=== PATIENT | male | born 1960 | race Caucasian/White ===

== ENCOUNTER 2022-11-26 08:46 | Outpatient (REF) | payer OTHER, SELFPAY ==
--- NOTE | ~2022-11-26 | XR_ITS ---
EXAMINATION: XR MANDIBLE CLINICAL INFORMATION: Arthralgia of right temporomandibular joint COMPARISON: Radiograph TMJ bilateral from 10/09/2009 TECHNIQUE: 4 views of the mandible were obtained. FINDINGS: No acute visible fracture or dislocation. Mild degenerative changes of the visualized cervical spine. Joint spaces and alignment are maintained. Dental hardware noted. Visualized sinuses are relatively patent. Soft tissues are unremarkable. XR/XR mandible <4V IMPRESSION: 1. No acute visible fracture or dislocation. 2. Mild degenerative changes of the visualized cervical spine.
== END 2022-11-26 08:47 | disposition home or self-care (01) ==
LOC: HO.HMGCX 08:46
PROVIDERS: PCP Internal Medicine; Visit Provider Internal Medicine
DX: M26.621 Arthralgia of right temporomandibular joint (principal)
CPT/HCPCS: 70100

== ENCOUNTER 2023-09-07 10:06 | Outpatient (AMB) | payer OTHER, SELFPAY ==
--- NOTE | 2023-09-07 10:07 | MHC.PC.OV ---
Vital Signs 09/07/23 10:08 09/07/23 10:52 Height 6 ft Weight 204 lb 0.8 oz BMI 27.7 BP 90/60 108/70 Blood Pressure Location Lt brachial Lt brachial Position Sitting Sitting Pulse 92 Pulse Source Pulse Oximeter Pulse Oximetry (%) 100 Oxygen Delivery Method Room Air Intake Visit Reasons: New patient-requesting physical Tack Welder Required: No Allergies No Known Allergies [No Known Allergies*] Allergy (Verified 09/07/23 10:15) Medication List - Last Reconciled 09/07/23 by Mary Prieto MD fluoxetine 20 mg PO DAILY gabapentin 100 mg PO BEDTIME [[facility] 2 gummies PO .QD] Tobacco use date assessed: 09/07/23 Dental Screening Dental Screen Date: 09/07/23 Did you have a dental visit in the last 12 months?: Yes Did you have a dental problem in the last 6 months where you did not have access to dental care?: No Was dental information given to patient?: Patient has dentist HPI New patient-requesting physical HPI Details 62-year-old Overweight male with generalized anxiety disorder coming in for the 1st time to have physical exam. Review of the notes had an x-ray done of the TMJ bilateral showing no visible fracture mild degenerative changes on the cervical spine. decline vaccination PFSH Family History (Updated 09/07/23 @ 10:59 by Mary Prieto MD) Sister Breast cancer Brother Skin cancer Social History (Updated 09/07/23 @ 11:00 by Mary Prieto MD) Housing: Apartment Alcohol intake: current Comment: beer once Q 6 months Patient Tobacco Use Status: Never used Tobacco service: No Current occupational status: employed Cognitive needs: No Hearing needs: No Vision needs: No Questionnaire PHQ-9 Over the last 2 weeks, how often have you been bothered by any of the following problems? 1. Little interest or pleasure in doing things: not at all 2. Feeling down, depressed, or hopeless: several days 3. Trouble falling or staying asleep, or sleeping too much: not at all 4. Feeling tired or having little energy: not at all 5. Poor appetite or overeating: not at all 6. Feeling bad about yourself - or that you are a failure or have let yourself or your family down: not at all 7. Trouble concentrating on things, such as reading the newspaper or watching television: not at all 8. Moving or speaking so slowly that other people could have noticed. Or the opposite - being so fidgety or restless that you have been moving around a lot more than usual: not at all 9. Thoughts that you would be better off or of hurting yourself in some way: not at all Total score: 1 Depression Screening Interpretation: Positive Depression Screening Follow-up: Existing condition and In treatment Depression Screening Done: Yes Source: Developed by Drs. Dk Rivas, Shasta Charlton, Nixon Sultana and colleagues, with an educational faviola from [employer]. Thrive Questionnaire Date Thrive assessed: 09/07/23 I am a: Patient What is your living situation today?: I have a steady place to live Within the past 12 months, did the food you bought not last and you didn't have the money to get more?: Never true Within the past 12 months, did you worry whether your food would run out before you got money to buy more?: Never true Do you have trouble paying for medicines?: No Do you have trouble getting transportation to medical appointments?: No Do you have trouble paying your heating and electricity bill?: No Do you have trouble taking care of your child, family member or friend?: No Do you have trouble with day-to-day activities such as bathing, preparing meals, shopping, managing finances, etc.?: No Are you currently unemployed and looking for a job?: No Are you interested in more education?: No AUDIT C Alcohol Use Questionnaire (AUDIT-C) 1. How often do you have a drink containing alcohol?: Never 3. How often do you have six or more drinks on one occasion?: Never Total Score: 0 ARIEL-7 AMB Questionnaire ARIEL-7 Date ARIEL - 7 assessed: 09/07/23 Feeling nervous, anxious, or on edge: 1 = Several days Not being able to stop or control worryin = Not at all Worrying too much about different things: 0 = Not at all Trouble relaxin = Not at all Being so restless that it is hard to sit still: 0 = Not at all Becoming easily annoyed or irritable: 0 = Not at all Feeling afraid as if something awful might happen: 0 = Not at all Total ARIEL-7 score (0-4 normal; 5-9 mild; 10-14 moderate; 15-21 severe): 1 Source: Developed by Drs. Dk Rivas, Shasta Charlton, Nixon Sultana and colleagues, with an educational faviola from [employer]. Review of Systems Const Denies poor appetite and Denies weakness Eyes Denies no additional complaints ENT Reports Normal hearing present, Denies dizziness, Denies nasal congestion, Denies tinnitus and Denies sore throat Card Denies chest pain, Denies syncope, Denies rapid heart rate and Denies dyspnea Resp Denies cough and Denies dyspnea GI Denies change in stool character, Reports constipation, Denies diarrhea, Denies nausea and Denies vomiting Denies dysuria and Denies urinary frequency Neuro Reports Normal hearing present, Denies confusion, Denies dizziness, Denies syncope and Denies weakness Psych Denies confusion Physical exam (Primary Care) Vital Signs: Last Vital Signs Pulse 92 09/07/23 10:08 BP 90/60 09/07/23 10:08 Pulse Ox 100 09/07/23 10:08 Oxygen Delivery Method Room Air 09/07/23 10:08 BMI result Body Mass Index 27.7 Tobacco/Smoking Status: Tobacco use Status Tobacco use date assessed 09/07/23 09/07/23 10:09 Patient Tobacco Use Status Never used Tobacco 09/07/23 10:09 PHQ-9: PHQ-9 Score PHQ-9: Total score 1 09/07/23 10:21 Depression Screening Interpretation: Positive Depression Screening Follow-up: Existing condition and In treatment Thrive Assessment: Date of Thrive Assessment Date Thrive assessed 09/07/23 09/07/23 10:09 Const General: alert and awake; No confusion Orientation/consciousness: No confusion HENMT Head: Yes normocephalic Ears: external ears normal and TM's normal bilaterally Face and sinus: Yes normal facial exam Mouth: moist mucous membranes Throat: Yes tonsils normal Eyes Conjunctivae: conjunctivae normal Pupils: Equal, round and reactive pupils present and Pupil accommodation reflex normal Direct Ophthalmoscopy: normal light reflex Neck Neck: No lymphadenopathy Thyroid: Thyroid normal Chest Chest palpation & inspection: normal inspection of the chest Resp Effort & Inspection: normal respiratory effort and no audible wheezes Auscultation: clear to auscultation bilaterally, no crackles, no wheezes and lung sounds not diminished Cardio Rate: regular rate Rhythm: regular rhythm Peripheral pulses: radial pulses present and dorsalis pedis present GI Other: decline rectal exam , umbilical hernia noted 3 inches by 3 inches Palpation (GI): no masses Auscultation: normal bowel sounds and normoactive bowel sounds Rectal Exam - Male: Yes deferred Skin General skin exam: no rashes or lesions noted Rashes: no rashes Neuro General: deep tendon reflexes 2+ bilaterally and No confusion Cranial nerves: Yes Equal, round and reactive pupils present, Yes Midline tongue present, Yes Normal hearing present and Yes Ability to bilaterally elevate shoulders present Cognition (Neuro): normal cognition Gait exam (Neuro): Normal gait present Motor exam (neuro): 5/5 motor strength present throughout Deep tendon reflexes (DTR's): Right brachioradialis reflex intensity grade: 2+, Left brachioradialis reflex intensity grade: 2+, Right patellar reflex intensity grade: 2+ and Left patellar reflex intensity grade: 2+ Extrem General: No edema Assessment and Plan Assessment & Plan (1) Annual physical exam: Code(s): Z00.00 - Encounter for general adult medical examination without abnormal findings Plan: Keep well hydrated, eat healthy and keep active (2) Overweight (BMI 25.0-29.9): Code(s): E66.3 - Overweight Plan: Diet and exercise (3) Generalized anxiety disorder: Comment: [address] [facility], [place]- Code(s): F41.1 - Generalized anxiety disorder Plan: Continue with present therapy (4) Impaired glucose tolerance: Code(s): R73.02 - Impaired glucose tolerance (oral) Plan: Decrease the amount of carbohydrate intake, pasta, bread, rice and potatoes are all sugar and that is aside from all the sweet stuff, remember that fruits are good but they are Sweet also. (5) Constipation: Code(s): K59.00 - Constipation, unspecified Plan: drink enough fluid and exercise, eat healthy (6) Impacted cerumen of both ears: Code(s): H61.23 - Impacted cerumen, bilateral Plan: call if need irrigation (7) Umbilical hernia: Code(s): K42.9 - Umbilical hernia without obstruction or gangrene Plan: advised to avoid surgery Orders: Orders Comprehensive Met. Panel Today R73.02 - Impaired glucose tolerance (oral) Hemoglobin A1c Today R73.02 - Impaired glucose tolerance (oral) Free T4 (Free Thyroxine) Today R73.02 - Impaired glucose tolerance (oral) Thyroid Stimulating Hormone Today R73.02 - Impaired glucose tolerance (oral) Complete Blood Count Auto Diff Today R73.02 - Impaired glucose tolerance (oral) Lipid Panel Today E78.00 - Pure hypercholesterolemia, unspecified, R73.02 - Impaired glucose tolerance (oral) Vitamin B12 and Folate Today R73.02 - Impaired glucose tolerance (oral) Prostate Specific Antigen Scr Today R73.02 - Impaired glucose tolerance (oral) Coding Level of Care Code New Pt Prev Care >65yr (88413) Diagnoses Annual physical exam Z00.00 Overweight (BMI 25.0-29.9) E66.3 Generalized anxiety disorder F41.1 Impaired glucose tolerance R73.02 Constipation K59.00 Impacted cerumen of both ears H61.23 Umbilical hernia K42.9
[2023-09-07 10:08] VITALS: BP 90/60; PULSE 92; O2SAT 100; BMI 27.7
[2023-09-07 10:52] VITALS: BP 108/70
== END 2023-09-07 11:36 | disposition home or self-care (01) ==
PROVIDERS: PCP Internal Medicine; Visit Provider Internal Medicine
DX: Z00.00 Encounter for general adult medical examination without abnormal findings (principal); E66.3 Overweight; F41.1 Generalized anxiety disorder; R73.02 Impaired glucose tolerance (oral); K59.00 Constipation, unspecified; H61.23 Impacted cerumen, bilateral; K42.9 Umbilical hernia without obstruction or gangrene
CPT/HCPCS: 99396

== ENCOUNTER 2023-09-13 08:21 | Outpatient (REF) | payer OTHER, SELFPAY ==
[2023-09-13 10:57] LABS: MANUAL DIFF FLAG NO
[2023-09-13 11:07] LABS: Basophils Percent Auto 0.5 % (0-2); Eosinophils Absolute Auto 0.1 X10*3/uL (0.0-0.4); Eosinophils Percent Auto 1.7 % (0-4); Hematocrit 45.7 % (42.0-52.0); Hemoglobin 16.2 g/dl (14.0-18.0); Imm Gran Abs Auto 0.01 X10*3/uL (0.00-0.03); Imm Gran Pct Auto 0.2 % (0.0-0.4); Lymphocytes Absolute Auto 2.4 X10*3/uL (1.2-4.9); Lymphocytes Percent Auto 41.2 % (20-40); Mean Corpuscular HGB Conc 35.4 g/dl (31.0-36.0); Mean Corpuscular Hemoglobin 31.5 pg (27.0-33.0); Mean Corpuscular Volume 88.9 fL (80.0-98.0); Mean Platelet Volume 10.3 fL (9.4-12.4); Monocytes Absolute Auto 0.4 X10*3/uL (0.1-1.2); Monocytes Percent Auto 6.4 % (2-11); Neutrophils Absolute Auto 2.9 x10*3/uL (2.0-8.3); Platelet Count 253 X10*3/uL (160-400); Red Blood Count 5.14 X10*6/uL (4.60-5.80); Red Cell Distribution Width 13.2 % (11.0-16.0); White Blood Count 5.8 X10*3/uL (4.8-10.8)
[2023-09-13 11:17] LABS: Estimated Average Glucose 108 mg/dL; Hemoglobin A1c % 5.4 % (<6.0)
[2023-09-13 11:33] LABS: Alanine Aminotransferase 20 U/L (0-40); Albumin Level 4.3 g/dL (3.5-5.0); Alkaline Phosphatase 47 U/L (39-117); Anion Gap 14 (12-20); Aspartate Amino Transferase 21 U/L (5-37); Bilirubin Total 0.8 mg/dL (0.0-1.0); Blood Urea Nitrogen 10 mg/dL (9-16); Calcium 10.3 mg/dL (8.4-10.2); Carbon Dioxide 29 mmol/L (22-29); Chloride 100 mmol/L (96-108); Cholesterol 150 mg/dL (<200); Estimated Glomerular Filt Rate > 60; Glucose Random 93 mg/dL (60-115); HDL Cholesterol 52 mg/dL (>40); LDL Cholesterol Calculated 82 mg/dL (<100); Potassium 3.5 mmol/L (3.3-5.1); Sodium 139 mmol/L (135-145); Total Protein 7.7 g/dL (6.5-8.0); Triglycerides 83 mg/dL (<150)
[2023-09-13 11:50] LABS: Vitamin B12 280 pg/mL (200-900)
[2023-09-13 11:51] LABS: Free T4 (Free Thyroxine) 1.22 ng/dL (0.71-1.85); Thyroid Stimulating Hormone 1.14 uIU/mL (0.32-4.0)
== END 2023-09-13 08:22 | disposition home or self-care (01) ==
LOC: HO.HMGCLDS 08:21
PROVIDERS: PCP Internal Medicine; Visit Provider Internal Medicine
DX: R73.02 Impaired glucose tolerance (oral) (principal); E78.00 Pure hypercholesterolemia, unspecified
CPT/HCPCS: 36415; 80053; 80061; 82607; 82746; 83036; 84153; 84439; 84443; 85025

== ENCOUNTER 2023-12-14 16:08 | Outpatient (AMB) | payer OTHER, SELFPAY ==
[2023-12-14 16:14] VITALS: BP 118/72; PULSE 90; O2SAT 96; BMI 27.1
--- NOTE | 2023-12-14 16:14 | MHC.PC.OV ---
Vital Signs 12/14/23 16:14 Height 6 ft Weight 200 lb BMI 27.1 BP 118/72 Blood Pressure Location Lt brachial Position Sitting Pulse 90 Pulse Source Pulse Oximeter Pulse Oximetry (%) 96 Oxygen Delivery Method Room Air Intake Visit Reasons: cataract surgery 01/11 [place] [facility] Allergies No Known Allergies [No Known Allergies*] Allergy (Verified 12/14/23 16:15) Medication List - Last Reconciled 12/14/23 by Mary Prieto MD fluoxetine 20 mg PO DAILY [[facility] 2 gummies PO .QD] Tobacco use date assessed: 12/14/23 Dental Screening Dental Screen Date: 12/14/23 Did you have a dental visit in the last 12 months?: Yes Did you have a dental problem in the last 6 months where you did not have access to dental care?: No Was dental information given to patient?: Patient has dentist HPI cataract surgery 01/11 [place] [facility] HPI Details 63-year-old overweight male with a history of impaired glucose tolerance umbilical hernia generalized anxiety disorder coming in for preoperative evaluation for cataract surgery. Last seen in August. Blood work done in August 2023 scheduled 01/12/2024. R eye, L eye March 06, 2024. going up flight of stairs - no problem. relates to me that during covid felt weak for 1.5 weeks had a fall on the stairs. but is better now. [facility] Family History (Updated 12/14/23 @ 16:16 by Bryanna Garcia [facility]) Sister Breast cancer Brother Skin cancer Social History (Updated 12/14/23 @ 17:13 by Mary Prieto MD) Housing: Apartment Alcohol intake: current Comment: beer once Q 6 months last one 2022 Patient Tobacco Use Status: Never used Tobacco e-Cigarette/Vaping Use: Never Used Second Hand Smoke Exposure: No service: No Current occupational status: employed Cognitive needs: No Hearing needs: No Vision needs: Yes Questionnaire PHQ-9 Over the last 2 weeks, how often have you been bothered by any of the following problems? 1. Little interest or pleasure in doing things: not at all 2. Feeling down, depressed, or hopeless: several days 3. Trouble falling or staying asleep, or sleeping too much: not at all 4. Feeling tired or having little energy: not at all 5. Poor appetite or overeating: not at all 6. Feeling bad about yourself - or that you are a failure or have let yourself or your family down: not at all 7. Trouble concentrating on things, such as reading the newspaper or watching television: not at all 8. Moving or speaking so slowly that other people could have noticed. Or the opposite - being so fidgety or restless that you have been moving around a lot more than usual: not at all 9. Thoughts that you would be better off or of hurting yourself in some way: not at all Total score: 1 Depression Screening Interpretation: Positive Depression Screening Follow-up: Existing condition and In treatment Depression Screening Done: Yes Source: Developed by Drs. Dk Rivas, Shasta Charlton, Nixon Sultana and colleagues, with an educational faviola from [employer]. Thrive Questionnaire Date Thrive assessed: 12/14/23 I am a: Patient What is your living situation today?: I have a steady place to live Within the past 12 months, did the food you bought not last and you didn't have the money to get more?: Never true Within the past 12 months, did you worry whether your food would run out before you got money to buy more?: Never true Do you have trouble paying for medicines?: No Do you have trouble getting transportation to medical appointments?: No Do you have trouble paying your heating and electricity bill?: No Do you have trouble taking care of your child, family member or friend?: No Do you have trouble with day-to-day activities such as bathing, preparing meals, shopping, managing finances, etc.?: No Are you currently unemployed and looking for a job?: No Are you interested in more education?: No Currently or been in a relationship where the following occur: no concerns reported THRIVE Score: 0 AUDIT C Alcohol Use Questionnaire (AUDIT-C) 1. How often do you have a drink containing alcohol?: Never 3. How often do you have six or more drinks on one occasion?: Never Total Score: 0 ARIEL-7 AMB Questionnaire ARIEL-7 Date ARIEL - 7 assessed: 12/14/23 Feeling nervous, anxious, or on edge: 1 = Several days Not being able to stop or control worryin = Not at all Worrying too much about different things: 0 = Not at all Trouble relaxin = Not at all Being so restless that it is hard to sit still: 0 = Not at all Becoming easily annoyed or irritable: 0 = Not at all Feeling afraid as if something awful might happen: 0 = Not at all Total ARIEL-7 score (0-4 normal; 5-9 mild; 10-14 moderate; 15-21 severe): 1 Source: Developed by Drs. Dk Rivas, Shasta Charlton, Nixon Sultana and colleagues, with an educational faviola from [employer]. Review of Systems Const Denies poor appetite and Denies weakness Eyes Denies no additional complaints ENT Reports Normal hearing present, Denies dizziness, Denies nasal congestion, Denies tinnitus and Denies sore throat Card Denies chest pain, Denies syncope, Denies rapid heart rate and Denies dyspnea Resp Denies cough and Denies dyspnea GI Denies change in stool character, Reports constipation, Denies diarrhea, Denies nausea and Denies vomiting Denies dysuria and Denies urinary frequency Neuro Reports Normal hearing present, Denies confusion, Denies dizziness, Denies syncope and Denies weakness Psych Denies confusion Physical exam (Primary Care) Vital Signs: Last Vital Signs Pulse 90 12/14/23 16:14 BP 118/72 12/14/23 16:14 Pulse Ox 96 12/14/23 16:14 Oxygen Delivery Method Room Air 12/14/23 16:14 BMI result Body Mass Index 27.1 Tobacco/Smoking Status: Tobacco use Status Tobacco use date assessed 12/14/23 12/14/23 16:16 Patient Tobacco Use Status Never used Tobacco 12/14/23 16:16 e-Cigarette/Vaping Use Never Used 12/14/23 16:16 PHQ-9: PHQ-9 Score PHQ-9: Total score 1 12/14/23 16:29 Depression Screening Interpretation: Positive Depression Screening Follow-up: Existing condition and In treatment Thrive Assessment: Date of Thrive Assessment Date Thrive assessed 12/14/23 12/14/23 16:16 Currently or been in a relationship where the following occur: no concerns reported Const General: No confusion Orientation/consciousness: No confusion Eyes Conjunctivae: conjunctivae normal Resp Auscultation: clear to auscultation bilaterally Cardio Rate: regular rate Rhythm: regular rhythm GI Inspection: Yes normal to inspection Neuro General: No confusion Cranial nerves: Yes Normal hearing present Extrem General: Yes normal to inspection and No edema Assessment and Plan Assessment & Plan (1) Preop exam for internal medicine: Code(s): Z01.818 - Encounter for other preprocedural examination Plan: Patient belongs to the low risk category. and witht he low risk procedure. ekg and blood work requested. (2) Overweight (BMI 25.0-29.9): Code(s): E66.3 - Overweight Plan: Diet and exercise (3) Generalized anxiety disorder: Comment: 2006 [facility], [place]- (left practice 07/2023) Code(s): F41.1 - Generalized anxiety disorder Plan: Continue with therapy. Orders: Orders ECG 12 lead EKG Today Z01.818 - Encounter for other preprocedural examination Comprehensive Met. Panel Today Z01.818 - Encounter for other preprocedural examination Complete Blood Count Auto Diff Today Z01.818 - Encounter for other preprocedural examination Coding Level of Care Code Est Pt Level 4 (54929) Diagnoses Preop exam for internal medicine Z01.818 Overweight (BMI 25.0-29.9) E66.3 Generalized anxiety disorder F41.1
== END 2023-12-14 17:35 | disposition home or self-care (01) ==
PROVIDERS: PCP Internal Medicine; Visit Provider Internal Medicine
DX: Z01.818 Encounter for other preprocedural examination (principal); E66.3 Overweight; F41.1 Generalized anxiety disorder
CPT/HCPCS: 99214

== ENCOUNTER 2023-12-20 08:04 | Outpatient (REF) | payer OTHER, SELFPAY ==
--- NOTE | 2023-12-20 08:09 | ECG_ITS ---
Test Reason : PREPROC Blood Pressure : / mmHG Vent. Rate : 057 BPM Atrial Rate : 057 BPM P-R Int : 152 ms QRS Dur : 088 ms QT Int : 442 ms P-R-T Axes : 052 061 037 degrees QTc Int : 430 ms Sinus bradycardia Otherwise normal ECG No previous ECGs available Referred By: Mary Prieto Electronically Signed By:SERJIO VALLES MD
[2023-12-20 08:24] LABS: MANUAL DIFF FLAG NO
[2023-12-20 09:20] LABS: Basophils Percent Auto 0.8 % (0-2); Eosinophils Absolute Auto 0.1 X10*3/uL (0.0-0.4); Eosinophils Percent Auto 2.1 % (0-4); Hematocrit 43.5 % (42.0-52.0); Hemoglobin 14.8 g/dl (14.0-18.0); Imm Gran Abs Auto 0.01 X10*3/uL (0.00-0.03); Imm Gran Pct Auto 0.2 % (0.0-0.4); Lymphocytes Percent Auto 42.6 % (20-40); Mean Corpuscular Hemoglobin 31.4 pg (27.0-33.0); Mean Corpuscular Volume 92.4 fL (80.0-98.0); Mean Platelet Volume 9.9 fL (9.4-12.4); Monocytes Absolute Auto 0.3 X10*3/uL (0.1-1.2); Monocytes Percent Auto 6.9 % (2-11); Neutrophils Absolute Auto 2.3 x10*3/uL (2.0-8.3); Neutrophils Percent Auto 47.4 % (45-73); Platelet Count 249 X10*3/uL (160-400); Red Blood Count 4.71 X10*6/uL (4.60-5.80); Red Cell Distribution Width 13.2 % (11.0-16.0); White Blood Count 4.8 X10*3/uL (4.8-10.8)
[2023-12-20 09:50] LABS: Alanine Aminotransferase 17 U/L (0-40); Alkaline Phosphatase 46 U/L (39-117); Anion Gap 10 (12-20); Aspartate Amino Transferase 19 U/L (5-37); Bilirubin Total 0.5 mg/dL (0.0-1.0); Blood Urea Nitrogen 10 mg/dL (9-16); Calcium 9.7 mg/dL (8.4-10.2); Carbon Dioxide 30 mmol/L (22-29); Chloride 102 mmol/L (96-108); Estimated Glomerular Filt Rate > 60; Glucose Random 115 mg/dL (60-115); Potassium 4.3 mmol/L (3.3-5.1); Sodium 138 mmol/L (135-145); Total Protein 7.2 g/dL (6.5-8.0)
== END 2023-12-20 08:05 | disposition home or self-care (01) ==
LOC: HO.LAB 08:04
PROVIDERS: PCP Internal Medicine; Visit Provider Internal Medicine
DX: Z01.818 Encounter for other preprocedural examination (principal)
CPT/HCPCS: 36415; 80053; 85025; 93005

== ENCOUNTER → 2023-12-20 08:09 | Outpatient (BNV) | payer OTHER, SELFPAY | PROVIDERS: PCP Internal Medicine; Visit Provider Internal Medicine Cardiovascular Disease | DX: R00.1 Bradycardia, unspecified (principal) | CPT/HCPCS: 93010 ==

== ENCOUNTER 2024-04-28 09:24 | Outpatient (AMB) | payer OTHER, SELFPAY ==
--- NOTE | 2024-04-28 09:34 | MHC.PC.OV ---
Vital Signs 04/28/24 09:35 Height 6 ft Weight 227 lb 6 oz BMI 30.8 BP 140/80 H Blood Pressure Location Lt brachial Position Sitting Pulse 68 Pulse Source Pulse Oximeter Pulse Oximetry (%) 98 Oxygen Delivery Method Room Air Intake Visit Reasons: 4 month f/u Intake Note: Patient is here to follow up on ARIEL, IGT. Header Dock Required: No Etl Application Developer: Not Required per policy Accompanied by: Self / Same As Patient Allergies No Known Allergies [No Known Allergies*] Allergy (Verified 04/28/24 09:35) Tobacco use date assessed: 04/28/24 Dental Screening Dental Screen Date: 12/14/23 HPI 4 month f/u HPI Details 63-year-old overweight male with impaired glucose tolerance constipation and generalized anxiety disorder last seen in November for preoperative evaluation for cataract surgery. Patient is here for follow-up. Noted 27 lb weight gain. cataract surgery is good. has been eating chocolate [facility] History (Updated 04/28/24 @ 09:38 by EARNEST Randhawa) History of cataract surgery Family History Sister Breast cancer Brother Skin cancer Social History Housing: Apartment Alcohol intake: current Comment: beer once Q 6 months last one 2022 Patient Tobacco Use Status: Never used Tobacco e-Cigarette/Vaping Use: Never Used Second Hand Smoke Exposure: No service: No Current occupational status: employed Cognitive needs: No Hearing needs: No Vision needs: Yes Questionnaire Thrive Questionnaire Date Thrive assessed: 12/14/23 ARIEL-7 AMB Questionnaire ARIEL-7 Date ARIEL - 7 assessed: 12/14/23 Source: Developed by Drs. Dk Rivas, Shasta Charlton, Nixon Sultana and colleagues, with an educational faviola from [email or web address]. Physical exam (Primary Care) BMI result Body Mass Index 30.8 Tobacco/Smoking Status: Tobacco use Status Tobacco use date assessed 12/14/23 12/14/23 16:16 Patient Tobacco Use Status Never used Tobacco 12/14/23 17:13 e-Cigarette/Vaping Use Never Used 12/14/23 17:13 Thrive Assessment: Date of Thrive Assessment Date Thrive assessed 12/14/23 12/14/23 16:16 Const General: alert; No acute distress Eyes Conjunctivae: conjunctivae normal Resp Auscultation: clear to auscultation bilaterally Cardio Rate: regular rate Rhythm: regular rhythm GI Inspection: Yes normal to inspection Extrem General: Yes normal to inspection and No edema Assessment and Plan Assessment & Plan (1) Overweight (BMI 25.0-29.9): Code(s): E66.3 - Overweight Plan: Diet and exercise (2) Impaired glucose tolerance: Code(s): R73.02 - Impaired glucose tolerance (oral) Plan: Decrease the amount of carbohydrate intake, pasta, bread, rice and potatoes are all sugar and that is aside from all the sweet stuff, remember that fruits are good but they are Sweet also. (3) Generalized anxiety disorder: Comment: 2007 [facility], [place]- (left practice 07/2023) Code(s): F41.1 - Generalized anxiety disorder Plan: Continue with counseling and therapy. decline new referral Coding Level of Care Code Est Pt Level 4 (71860) Diagnoses Overweight (BMI 25.0-29.9) E66.3 Impaired glucose tolerance R73.02 Generalized anxiety disorder F41.1
[2024-04-28 09:35] VITALS: BP 140/80; PULSE 68; O2SAT 98; BMI 30.8
[2024-04-28 09:56] VITALS: BP 120/70
== END 2024-04-28 11:37 | disposition home or self-care (01) ==
PROVIDERS: PCP Internal Medicine; Visit Provider Internal Medicine
DX: E66.3 Overweight (principal); R73.02 Impaired glucose tolerance (oral); F41.1 Generalized anxiety disorder
CPT/HCPCS: 99214

== ENCOUNTER 2024-09-15 09:53 | Outpatient (AMB) | payer OTHER, SELFPAY ==
--- NOTE | 2024-09-15 10:04 | A.OFFPC_ITS ---
Vital Signs 09/15/24 10:05 Height 6 ft Weight 241 lb BMI 32.7 BP 110/80 Blood Pressure Location Lt brachial Position Sitting Pulse 76 Pulse Source Pulse Oximeter Temp 97.3 F Temp Source Skin Pulse Oximetry (%) 97 Oxygen Delivery Method Room Air Intake Visit Reasons: PE Intake Note: Patient is here today for a physical. Pt decline flu shot today Mushroom Farmer Required: No Flight Test Data Acquisition Technician: Not Required per policy Accompanied by: Self / Same As Patient Allergies No Known Allergies [No Known Allergies*] Allergy (Verified 09/15/24 10:16) Medication List - Last Reconciled 09/15/24 by Sandra Angel PA-C fluoxetine 20 mg PO DAILY [[employer] [place] 2 gummies PO .QD] Tobacco use date assessed: 09/15/24 Dental Screening Dental Screen Date: 09/15/24 Did you have a dental visit in the last 12 months?: Yes Did you have a dental problem in the last 6 months where you did not have access to dental care?: No Was dental information given to patient?: Patient has dentist HPI PE HPI Details 63-year-old overweight male with impaire d glucose tolerance, constipation and generalized anxiety disorder last seen by Dr. Prieto 03/2024 coming in for annual exam. Patient has noted 14 pound weight gain since last annual exam. He states he tries to cut back on sugars but does eat foods with high amounts of carbs. He states he does not drink soda or eat fast food often and does not drink water. He states he is struggling with his depression and anxiety has seen a counselor in the past and did not find this helpful and does not want to increase his fluoxetine at this time. Colonoscopy will be due this year and he is not up-to-date on his tetanus vaccine. [facility] Surgical History History of cataract surgery Family History Sister Breast cancer Brother Skin cancer Social History Housing: Apartment Alcohol intake: current Comment: beer once Q 6 months last one 2022 Patient Tobacco Use Status: Never used Tobacco e-Cigarette/Vaping Use: Never Used Second Hand Smoke Exposure: No service: No Current occupational status: employed Cognitive needs: No Hearing needs: No Vision needs: Yes Questionnaire PHQ-9 Over the last 2 weeks, how often have you been bothered by any of the following problems? 1. Little interest or pleasure in doing things: not at all 2. Feeling down, depressed, or hopeless: several days 3. Trouble falling or staying asleep, or sleeping too much: not at all 4. Feeling tired or having little energy: several days 5. Poor appetite or overeating: not at all 6. Feeling bad about yourself - or that you are a failure or have let yourself or your family down: several days 7. Trouble concentrating on things, such as reading the newspaper or watching television: not at all 8. Moving or speaking so slowly that other people could have noticed. Or the opposite - being so fidgety or restless that you have been moving around a lot more than usual: not at all 9. Thoughts that you would be better off or of hurting yourself in some way: not at all Total score: 3 Depression Screening Interpretation: Positive Depression Screening Follow-up: Existing condition and In treatment Depression Screening Done: Yes Source: Developed by Drs. Dk Rivas, Shasta Charlton, Nixon Sultana and colleagues, with an educational faviola from [employer]. Thrive Questionnaire Date Thrive assessed: 09/15/24 I am a: Patient What is your living situation today?: I have a steady place to live Within the past 12 months, did the food you bought not last and you didn't have the money to get more?: Sometimes True Within the past 12 months, did you worry whether your food would run out before you got money to buy more?: Sometimes True Do you have trouble paying for medicines?: No Do you have trouble getting transportation to medical appointments?: No Do you have trouble paying your heating and electricity bill?: Yes Do you have trouble taking care of your child, family member or friend?: No Do you have trouble with day-to-day activities such as bathing, preparing meals, shopping, managing finances, etc.?: No Are you currently unemployed and looking for a job?: No Are you interested in more education?: No Please select the resources that you would like help with: Utilities Currently or been in a relationship where the following occur: No concerns reported THRIVE Score: 3 AUDIT C Alcohol Use Questionnaire (AUDIT-C) 1. How often do you have a drink containing alcohol?: Never Total Score: 0 ARIEL-7 AMB Questionnaire ARIEL-7 Date ARIEL - 7 assessed: 09/15/24 Feeling nervous, anxious, or on edge: 0 = Not at all Not being able to stop or control worryin = Not at all Worrying too much about different things: 0 = Not at all Trouble relaxin = Not at all Being so restless that it is hard to sit still: 0 = Not at all Becoming easily annoyed or irritable: 0 = Not at all Feeling afraid as if something awful might happen: 0 = Not at all Total ARIEL-7 score (0-4 normal; 5-9 mild; 10-14 moderate; 15-21 severe): 0 Source: Developed by Drs. Dk Rivas, Shasta Charlton, Nixon Sultana and colleagues, with an educational faviola from [employer]. ARIEL-7 Assessment Billing ARIEL-7 Assessment Tool: ARIEL-7 Assessment 96602 Review of Systems Const Denies body aches, Denies fatigue, Denies fever(s), Denies frequent falls, Denies headache(s) and Denies weakness Eyes Details: improved since cataract surgery Reports no additional complaints and Denies change in vision ENT Denies dysphagia, Denies dizziness, Denies facial pain, Denies headache(s), Denies nasal congestion and Denies odynophagia Card Denies chest pain, Denies syncope, Denies irregular heart rhythm, Denies leg edema, Denies lightheadedness and Denies dyspnea Resp Denies cough and Denies dyspnea GI Denies abdominal pain, Denies constipation, Denies dysphagia, Denies dyspepsia, Denies diarrhea, Denies nausea, Denies odynophagia and Denies vomiting Denies dysuria, Denies urinary frequency, Denies urinary hesitancy and Denies urinary urgency Musc Denies back pain and Denies myalgias Skin/Breast Reports system reviewed and no additional complaints, except as documented Neuro Denies dizziness, Denies syncope, Denies frequent falls, Denies headache(s) and Denies weakness Psych Reports no additional complaints Endo Denies fatigue Physical exam (Primary Care) Tobacco/Smoking Status: Tobacco use Status Tobacco use date assessed 04/28/24 04/28/24 09:39 Patient Tobacco Use Status Never used Tobacco 04/28/24 09:39 e-Cigarette/Vaping Use Never Used 04/28/24 09:39 Depression Screening Interpretation: Positive Depression Screening Follow-up: Existing condition and In treatment Thrive Assessment: Date of Thrive Assessment Date Thrive assessed 09/07/24 09/07/24 02:36 Currently or been in a relationship where the following occur: No concerns reported Const General: cooperative, healthy appearing, comfortable and no acute distress Orientation/consciousness: patient oriented x3 HENMT Head: Yes normocephalic Ears: hearing grossly normal bilaterally, external ears normal, TM's normal bilaterally and EAC's normal General nose exam: Normal external nose present Face and sinus: Yes normal facial exam and Yes sinuses nontender Mouth: Normal oral and palatal mucosa present and tongue normal Throat: Yes posterior oropharynx normal Eyes General: appearance normal, both eyes and all related structures Conjunctivae: conjunctivae normal Pupils: Equal, round and reactive pupils present EOM: EOMs intact bilaterally and No Nystagmus present Neck Neck: Yes normal visual inspection, Yes full ROM and Yes no lymphadenopathy Chest Chest palpation & inspection: normal inspection of the chest Resp Effort & Inspection: normal respiratory effort Auscultation: clear to auscultation bilaterally, no crackles, no rales, no rhonchi, no wheezes and breath sounds present Cardio Rate: regular rate Rhythm: regular rhythm Peripheral pulses: radial pulses present and dorsalis pedis present GI Other: Small nontender umbilical hernia Inspection: Yes normal to inspection and No Abdominal wall edema Palpation (GI): Soft to palpation, not firm and nontender Auscultation: normal bowel sounds Rectal Exam - Male: Yes deferred General: Yes no CVA tenderness Back/Spine/Pelvis Back: no CVA tenderness Skin General skin exam: no rashes or lesions noted Neuro General: patient oriented x3 Cranial nerves: Yes Equal, round and reactive pupils present, Yes Midline tongue present, Yes Ability to bilaterally elevate shoulders present and No Nystagmus present Gait exam (Neuro): Normal gait present Extrem General: Yes normal to inspection, Yes full ROM, No no pedal edema and No edema Psych Speech and movement: Normal speech and movement present Affect: normal affect Insight: Good insight present (Psych) Judgement: Good judgement present (Psych) Coding Level of Care Code Est Pt Prev Care 40-64y(30667) Diagnoses Generalized anxiety disorder F41.1 Annual physical exam Z00.00 Impaired glucose tolerance R73.02 Constipation K59.00 Umbilical hernia K42.9 Obesity (BMI 30.0-34.9) E66.811 Depression F32.A Impacted cerumen of both ears H61.23 Erectile dysfunction N52.9 Additional Codes ARIEL-7 Assessment Billing - ARIEL-7 Assessment Tool: ARIEL-7 Assessment 23699 ([id number]) Assessment & Plan Assessment & Plan (1) Generalized anxiety disorder: Comment: 2006 [facility] [place] ([facility] 07/2023) Code(s): F41.1 - Generalized anxiety disorder Category: Medical Plan: Currently on fluoxetine 20 mg and feels symptoms are well managed at this time. (2) Annual physical exam: Code(s): Z00.00 - Encounter for general adult medical examination without abnormal findings Category: Medical Plan: Patient is up-to-date on all recommended routine screenings and vaccinations for his age. Ordered for updated blood work and we will follow up yearly or sooner if new problems arise or pending blood work. (3) Impaired glucose tolerance: Code(s): R73.02 - Impaired glucose tolerance (oral) Category: Medical Plan: Decrease the amount of carbohydrates such as pasta, bread, rice, and potatoes and limit the amount of sweets. Although fruits are generally healthy they should be eaten in moderation as they are still high in sugar. (4) Constipation: Code(s): K59.00 - Constipation, unspecified Category: Medical Plan: Healthy diet and regular exercise is encouraged. Advised patient to increase fiber and water intake (5) Umbilical hernia: Code(s): K42.9 - Umbilical hernia without obstruction or gangrene Category: Medical Plan: Appreciated on exam today advised patient to continue to monitor symptoms at this time. Reviewed red flag symptoms and when to present for re-evaluation (6) Obesity (BMI 30.0-34.9): Code(s): E66.811 - Obesity, class 1 Category: Medical Plan: Healthy diet and regular exercise is encouraged. (7) Depression: Code(s): F32.A - Depression, unspecified Category: Medical Plan: Patient complaining of depression and anxiety declining counselor at this time and feels fluoxetine is managing symptoms fairly well. Advised patient to reach out to the office if symptoms worsen or if you would like additional help through counseling or medication management. (8) Impacted cerumen of both ears: Code(s): H61.23 - Impacted cerumen, bilateral Category: Medical Plan: Patient has bilateral cerumen impaction on exam today. Advised to use Debrox drops for several days and follow up to the office for ear flushing. (9) Erectile dysfunction: Code(s): N52.9 - Male erectile dysfunction, unspecified Category: Medical Plan: Patient complaining of occasional erectile dysfunction. Declining medication at this time we will order for blood work including testosterone for further evaluation. Plan This note was constructed using voice recognition software. While every effort has been made to ensure accuracy and scrap separator, still areas may have been included sometimes these areas may affect the content or meeting of the given symptoms. Total time spent caring for the patient today was thirty minutes. This includes time spent before the visit reviewing the chart, time spent during the visit, and time spent after the visit and documentation. Orders: Orders Comprehensive Met. Panel Today Z00.00 - Encounter for general adult medical examination without abnormal findings Vitamin B12 and Folate Today Z00.00 - Encounter for general adult medical examination without abnormal findings UA CC w/rflx Micro + Cult Today R73.02 - Impaired glucose tolerance (oral) Complete Blood Count Auto Diff Today Z00.00 - Encounter for general adult medical examination without abnormal findings TSH reflex Free T4 Today Z00.00 - Encounter for general adult medical examination without abnormal findings PSA, Ultra Sensitive Today Z00.00 - Encounter for general adult medical examination without abnormal findings Vitamin D 25-OH Total Today Z00.00 - Encounter for general adult medical ex amination without abnormal findings Hemoglobin A1c Today E66.3 - Overweight, R73.02 - Impaired glucose tolerance (oral) Lipid Panel Today R73.02 - Impaired glucose tolerance (oral), Z00.00 - Encounter for general adult medical examination without abnormal findings Testosterone, Free/Total Today F32.A - Depression, unspecified, N52.9 - Male erectile dysfunction, unspecified Referrals Gastroenterology Referral Z12.11 - Encounter for screening for malignant neop lasm of colon
[2024-09-15 10:05] VITALS: BP 110/80; PULSE 76; TEMP 36.3; O2SAT 97; BMI 32.7
== END 2024-09-15 11:01 | disposition home or self-care (01) ==
PROVIDERS: PCP Internal Medicine
DX: Z00.00 Encounter for general adult medical examination without abnormal findings (principal); F41.1 Generalized anxiety disorder; E66.811 Obesity, class 1; Z68.32 Body mass index [BMI] 32.0-32.9, adult; R73.02 Impaired glucose tolerance (oral); K59.00 Constipation, unspecified; F32.A Depression, unspecified; K42.9 Umbilical hernia without obstruction or gangrene; H61.23 Impacted cerumen, bilateral; N52.9 Male erectile dysfunction, unspecified

== ENCOUNTER → 2024-09-15 09:53 | Outpatient (BNVA) | payer OTHER, SELFPAY | PROVIDERS: PCP Internal Medicine | DX: Z00.00 Encounter for general adult medical examination without abnormal findings (principal); F41.1 Generalized anxiety disorder; R73.02 Impaired glucose tolerance (oral); K59.00 Constipation, unspecified; E66.811 Obesity, class 1; H61.23 Impacted cerumen, bilateral; F32.A Depression, unspecified; N52.9 Male erectile dysfunction, unspecified | CPT/HCPCS: 96127; 99396 ==

== ENCOUNTER 2024-09-25 07:55 | Outpatient (AMB) | payer OTHER, SELFPAY ==
--- NOTE | 2024-09-25 08:19 | A.OFFPC_ITS ---
Vital Signs 09/25/24 08:21 Height 6 ft Weight 241 lb 4 oz BMI 32.7 BP 110/70 Blood Pressure Location Lt brachial Position Sitting Pulse 56 Pulse Source Pulse Oximeter Temp 97.1 F Temp Source Skin Pulse Oximetry (%) 99 Oxygen Delivery Method Room Air Intake Visit Reasons: ear cleaning - pt convenience Intake Note: Patient is here to follow up on ear cleaning. Cake Washer Required: No Eligibility Technician: Not Required per policy Accompanied by: Self / Same As Patient Allergies No Known Allergies [No Known Allergies*] Allergy (Verified 09/25/24 08:21) Medication List - Last Reconciled 09/25/24 by Sandra Angel PA-C carbamide peroxide 6.5% (Debrox) 5 drps otic (ears) DAILY 4 days fluoxetine 20 mg PO DAILY [[employer] [place] 2 gummies PO .QD] Tobacco use date assessed: 09/25/24 Dental Screening Dental Screen Date: 09/15/24 HPI ear cleaning - pt convenience HPI Details 64-year-old overweight male with impaire d glucose tolerance, constipation and generalized anxiety disorder last seen 08/2024 coming in for ear cleaning. Patient tells us today he will have itching in the ears and decreased hearing. He had his ears cleaned several years ago. COUNT INCLUDES THE [facility] Surgical History History of cataract surgery Family History Sister Breast cancer Brother Skin cancer Social History Housing: Apartment Alcohol intake: current Comment: beer once Q 6 months last one 2022 Patient Tobacco Use Status: Never used Tobacco e-Cigarette/Vaping Use: Never Used Second Hand Smoke Exposure: No service: No Current occupational status: employed Cognitive needs: No Hearing needs: No Vision needs: Yes Questionnaire Thrive Questionnaire Date Thrive assessed: 09/07/24 I am a: Patient What is your living situation today?: I have a steady place to live Within the past 12 months, did the food you bought not last and you didn't have the money to get more?: Sometimes True Within the past 12 months, did you worry whether your food would run out before you got money to buy more?: Sometimes True Do you have trouble paying for medicines?: No Do you have trouble getting transportation to medical appointments?: No Do you have trouble paying your heating and electricity bill?: Yes Do you have trouble taking care of your child, family member or friend?: No Do you have trouble with day-to-day activities such as bathing, preparing meals, shopping, managing finances, etc.?: No Are you currently unemployed and looking for a job?: No Are you interested in more education?: No Please select the resources that you would like help with: Utilities Currently or been in a relationship where the following occur: No concerns reported THRIVE Score: 3 ARIEL-7 AMB Questionnaire ARIEL-7 Date ARIEL - 7 assessed: 09/15/24 Source: Developed by Drs. Dk Rivas, Shasta Charlton, Nixon Sultana and colleagues, with an educational faviola from [employer]. Review of Systems Const Reports no additional complaints Eyes Reports no additional complaints ENT Details: ear clogged feeling and decreased hearing Card Reports no additional complaints Resp Reports no additional complaints Physical exam (Primary Care) Vital Signs: Last Vital Signs Temp 97.1 F 09/25/24 08:21 Pulse 56 09/25/24 08:21 BP 110/70 09/25/24 08:21 Pulse Ox 99 09/25/24 08:21 Oxygen Delivery Method Room Air 09/25/24 08:21 BMI result Body Mass Index 32.7 Tobacco/Smoking Status: Tobacco use Status Tobacco use date assessed 09/25/24 09/25/24 08:23 Patient Tobacco Use Status Never used Tobacco 09/25/24 08:23 e-Cigarette/Vaping Use Never Used 09/25/24 08:23 Thrive Assessment: Date of Thrive Assessment Date Thrive assessed 09/07/24 09/25/24 08:23 Currently or been in a relationship where the following occur: No concerns reported Const General: cooperative, healthy appearing, comfortable and no acute distress Orientation/consciousness: patient oriented x3 HENMT Head: Yes normocephalic Ears: hearing grossly normal bilaterally and Abnormal EAC present cerumen impaction bilateral General nose exam: Normal external nose present Resp Effort & Inspection: normal respiratory effort Cardio Rate: regular rate Neuro General: patient oriented x3 Gait exam (Neuro): Normal gait present Psych Affect: normal affect Attitude: cooperative Insight: Good insight present (Psych) Judgement: Good judgement present (Psych) Office Procedures Cerumen Removal From which ear canal was the cerumen removed: bilateral Removal: irrigation and cerumen loop/spoon Notes: patient tolerated procedure well and no complications [id number] Irrigation/Lavage Coding Level of Care Code Procedure Only Diagnoses Impacted cerumen of both ears H61.23 CPT Codes Office Procedure - CPT: 88475-Zmr Irrigation/Lavage ([id number]) Assessment & Plan Assessment & Plan (1) Impacted cerumen of both ears: Code(s): H61.23 - Impacted cerumen, bilateral Category: Medical Plan: Patient was unable to use Debrox in his ears can see could not find them [id number]. Bilateral ears unable to be need successfully. Wax is dark brown and very hard and patient began to have irritation in the ear canal prompting us to stopped the ear flushing. Advised patient to use [id number] Debrox drops for 5 days and follow up in 1 week. Plan This note was constructed using voice recognition software. While every effort has been made to ensure accuracy and floodplain manager, still areas may have been included sometimes these areas may affect the content or meeting of the given symptoms. Total time spent caring for the patient today was 20 minutes. This includes time spent before the visit reviewing the chart, time spent during the visit, and time spent after the visit and documentation. Medications: New carbamide peroxide 6.5% (Debrox) 5 drps otic (ears) DAILY 15 mL 0RF 4 days
[2024-09-25 08:21] VITALS: BP 110/70; PULSE 56; TEMP 36.2; O2SAT 99; BMI 32.7
== END 2024-09-25 08:52 | disposition home or self-care (01) ==
PROVIDERS: PCP Internal Medicine
DX: H61.23 Impacted cerumen, bilateral (principal)

== ENCOUNTER → 2024-09-25 07:55 | Outpatient (BNVA) | payer OTHER, SELFPAY | PROVIDERS: PCP Internal Medicine | DX: H61.23 Impacted cerumen, bilateral (principal) | CPT/HCPCS: 69210; 99212 ==

== ENCOUNTER 2024-10-02 07:32 | Outpatient (REF) | payer OTHER, SELFPAY ==
[2024-10-02 10:16] LABS: MANUAL DIFF FLAG NO
[2024-10-02 10:26] LABS: Appearance Urine Clear; Color Urine Yellow; Glucose Urine UA Negative (Negative); Leukocyte Esterase Urine Negative (Negative); Nitrite Urine Negative (Negative); PH 5.5 (5.0-9.0); Urine Blood Negative (Negative); Urine Ketones Negative (Negative); Urine Protein Trace mg/dL (Neg-Trace)
[2024-10-02 10:34] LABS: Basophils Percent Auto 0.6 % (0-2); Eosinophils Absolute Auto 0.1 X10*3/uL (0.0-0.4); Eosinophils Percent Auto 2.5 % (0-4); Hematocrit 47.4 % (42.0-52.0); Hemoglobin 16.3 g/dl (14.0-18.0); Imm Gran Abs Auto 0.01 X10*3/uL (0.00-0.03); Imm Gran Pct Auto 0.2 % (0.0-0.4); Lymphocytes Absolute Auto 1.9 X10*3/uL (1.2-4.9); Lymphocytes Percent Auto 38.9 % (20-40); Mean Corpuscular HGB Conc 34.4 g/dl (31.0-36.0); Mean Corpuscular Hemoglobin 31.3 pg (27.0-33.0); Mean Corpuscular Volume 91.2 fL (80.0-98.0); Mean Platelet Volume 10.8 fL (9.4-12.4); Monocytes Absolute Auto 0.3 X10*3/uL (0.1-1.2); Monocytes Percent Auto 6.9 % (2-11); Neutrophils Absolute Auto 2.4 x10*3/uL (2.0-8.3); Neutrophils Percent Auto 50.9 % (45-73); Platelet Count 227 X10*3/uL (160-400); Red Cell Distribution Width 13.7 % (11.0-16.0); White Blood Count 4.8 X10*3/uL (4.8-10.8)
[2024-10-02 10:58] LABS: Alanine Aminotransferase 21 U/L (0-40); Albumin Level 4.2 g/dL (3.5-5.0); Alkaline Phosphatase 53 U/L (39-117); Anion Gap 11 (12-20); Aspartate Amino Transferase 26 U/L (5-37); Bilirubin Total 0.9 mg/dL (0.0-1.0); Blood Urea Nitrogen 16 mg/dL (9-16); Calcium 9.5 mg/dL (8.4-10.2); Carbon Dioxide 28 mmol/L (22-29); Chloride 104 mmol/L (96-108); Cholesterol 162 mg/dL (<200); Estimated Glomerular Filt Rate > 60; Glucose Random 96 mg/dL (60-115); HDL Cholesterol 47 mg/dL (>40); LDL Cholesterol Calculated 101 mg/dL (<100); Potassium 4.2 mmol/L (3.3-5.1); Sodium 139 mmol/L (135-145); Total Protein 7.8 g/dL (6.5-8.0); Triglycerides 72 mg/dL (<150)
[2024-10-02 11:11] LABS: Estimated Average Glucose 120 mg/dL; Hemoglobin A1C 170.3209 umol/L; Hemoglobin A1c % 5.8 % (<6.0); Total Hemoglobin (HGBA1C) 4227.5134 umol/L
[2024-10-02 11:18] LABS: TSH reflex Free T4 1.28 uIU/mL (0.32-4.0); Vitamin D 25-OH Total 25.7 ng/mL (>30)
[2024-10-02 12:41] LABS: Folate 13.6 ng/mL (> or = 4.0); Vitamin B12 266 pg/mL (200-900)
[2024-10-11 00:38] LABS: PSA, Ultra Sensitive 0.22 ng/mL
== END 2024-10-02 07:33 | disposition home or self-care (01) ==
LOC: HO.HMGCLDS 07:32
PROVIDERS: PCP Internal Medicine
DX: H61.23 Impacted cerumen, bilateral (principal); R29.6 Repeated falls; Z00.00 Encounter for general adult medical examination without abnormal findings; E66.3 Overweight; R73.02 Impaired glucose tolerance (oral); F32.A Depression, unspecified; N52.9 Male erectile dysfunction, unspecified
CPT/HCPCS: 36415; 69210; 80053; 80061; 81003; 82306; 82607; 82746; 83036; 84153; 84402; 84403; 84443; 85025; 99212

== ENCOUNTER 2024-10-02 09:29 | Outpatient (AMB) | payer OTHER, SELFPAY ==
--- NOTE | 2024-10-02 09:40 | MHC.PC.OV ---
Vital Signs 10/02/24 09:41 Height 6 ft Weight 242 lb BMI 32.8 BP 124/70 Blood Pressure Location Lt brachial Position Sitting Pulse 77 Pulse Source Pulse Oximeter Temp 97.1 F Temp Source Skin Pulse Oximetry (%) 99 Oxygen Delivery Method Room Air Intake Visit Reasons: repeat ear flush Intake Note: Patient is here to follow up on Repeat ear flush. 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 He tells us he had a fall earlier this week. Patient does fall on occasion and states when he falls he has difficulty getting back up. He can get himself to and kneeling position but then has decreased strength in the lower extremities to be able to push himself up. He does not mentioned any weakness with walking and has no issue with stairs. [facility] Surgical History History of cataract surgery Family History Sister Breast cancer Brother Skin cancer Social History Housing: Apartment Alcohol intake: current Comment: beer once Q 6 months last one 2022 Patient Tobacco Use Status: Never used Tobacco e-Cigarette/Vaping Use: Never Used Second Hand Smoke Exposure: No service: No Current occupational status: employed Cognitive needs: No Hearing needs: No Vision needs: Yes Questionnaire Thrive Questionnaire Date Thrive assessed: 09/07/24 I am a: Patient What is your living situation today?: I have a steady place to live Within the past 12 months, did the food you bought not last and you didn't have the money to get more?: Sometimes True Within the past 12 months, did you worry whether your food would run out before you got money to buy more?: Sometimes True Do you have trouble paying for medicines?: No Do you have trouble getting transportation to medical appointments?: No Do you have trouble paying your heating and electricity bill?: Yes Do you have trouble taking care of your child, family member or friend?: No Do you have trouble with day-to-day activities such as bathing, preparing meals, shopping, managing finances, etc.?: No Are you currently unemployed and looking for a job?: No Are you interested in more education?: No Please select the resources that you would like help with: Utilities Currently or been in a relationship where the following occur: No concerns reported THRIVE Score: 3 ARIEL-7 AMB Questionnaire ARIEL-7 Date ARIEL - 7 assessed: 09/15/24 Source: Developed by Drs. Dk Rivas, Shasta Charlton, Nixon Sultana and colleagues, with an educational faviola from [employer]. Review of Systems Const Denies body aches, Denies chills, Denies fever(s) and Denies poor appetite Eyes Reports no additional complaints Card Denies chest pain, Denies syncope, Denies irregular heart rhythm, Denies lightheadedness and Denies dyspnea Resp Denies cough and Denies dyspnea Musc Reports no additional complaints and Denies abnormal gait Skin/Breast Reports system reviewed and no additional complaints, except as documented Neuro Denies abnormal gait and Denies syncope Psych Reports no additional complaints Physical exam (Primary Care) Vital Signs: Last Vital Signs Temp 97.1 F 10/02/24 09:41 Pulse 77 10/02/24 09:41 BP 124/70 10/02/24 09:41 Pulse Ox 99 10/02/24 09:41 Oxygen Delivery Method Room Air 10/02/24 09:41 BMI result Body Mass Index 32.8 Tobacco/Smoking Status: Tobacco use Status Tobacco use date assessed 10/02/24 10/02/24 09:44 Patient Tobacco Use Status Never used Tobacco 10/02/24 09:44 e-Cigarette/Vaping Use Never Used 10/02/24 09:44 Thrive Assessment: Date of Thrive Assessment Date Thrive assessed 09/07/24 10/02/24 09:44 Currently or been in a relationship where the following occur: No concerns reported Const General: cooperative, healthy appearing, comfortable and no acute distress Orientation/consciousness: patient oriented x3 HENMT Head: Yes normocephalic Ears: hearing grossly normal bilaterally and Abnormal EAC present cerumen impaction bilateral General nose exam: Normal external nose present Eyes General: appearance normal, both eyes and all related structures Conjunctivae: conjunctivae normal Neck Neck: Yes full ROM and Yes no lymphadenopathy Resp Effort & Inspection: normal respiratory effort Auscultation: clear to auscultation bilaterally, no crackles, no rales, no rhonchi and no wheezes Cardio Rate: regular rate Rhythm: regular rhythm Skin General skin exam: no rashes or lesions noted Neuro General: patient oriented x3 Gait exam (Neuro): Normal gait present Extrem General: Yes normal to inspection, Yes full ROM and No edema Psych Affect: normal affect Attitude: cooperative Insight: Good insight present (Psych) Judgement: Good judgement present (Psych) Office Procedures Cerumen Removal From which ear canal was the cerumen removed: bilateral Removal: irrigation and cerumen loop/spoon Notes: patient tolerated procedure well and no complications [id number] Irrigation/Lavage Coding Level of Care Code Est Pt Level 3 (79179) Diagnoses Frequent falls R29.6 Impacted cerumen of both ears H61.23 CPT Codes Office Procedure - CPT: 47237-Sbs Irrigation/Lavage ([id number]) Assessment & Plan Assessment & Plan (1) Frequent falls: Code(s): R29.6 - Repeated falls Category: Medical Plan: Patient complaining of occasional falls and having inability to get back up from a kneeling position. Referral sent to physical therapy for lower extremity strengthening. (2) Impacted cerumen of both ears: Code(s): H61.23 - Impacted cerumen, bilateral Category: Medical Plan: Unable to successfully clear bilateral ear canals with ear lavage and cerumen loop. Patient tolerated the procedure well without complication. Referral placed to ear nose and throat for further evaluation. Plan This note was constructed using voice recognition software. While every effort has been made to ensure accuracy and cigarette making examiner, still areas may have been included sometimes these areas may affect the content or meeting of the given symptoms. Total time spent caring for the patient today was 20 minutes. This includes time spent before the visit reviewing the chart, time spent during the visit, and time spent after the visit and documentation. Orders: Orders PT Evaluation and Treatment Today R29.6 - Repeated falls Referrals Ear/Nose/Throat Referral H61.23 - Impacted cerumen, bilateral
[2024-10-02 09:41] VITALS: BP 124/70; PULSE 77; TEMP 36.2; O2SAT 99; BMI 32.8
== END 2024-10-02 10:46 | disposition home or self-care (01) ==
PROVIDERS: PCP Internal Medicine
DX: R29.6 Repeated falls (principal); H61.23 Impacted cerumen, bilateral

== ENCOUNTER 2025-02-09 10:01 | Outpatient (AMB) | payer OTHER, SELFPAY ==
--- NOTE | 2025-02-09 10:09 | A.OFFVIS_ITS ---
Vital Signs 02/09/25 10:15 Height 6 ft Weight 242 lb BMI 32.8 BP 146/66 H Blood Pressure Location Rt brachial Position Sitting Pulse 58 Pulse Source Pulse Oximeter Pulse Oximetry (%) 97 Oxygen Delivery Method Room Air Comment Pt declined updated weight today. Prev weight used. Intake Visit Reasons: Colonoscopy screening Intake Note: New patient for recall colo screening. Last colo w/ Dr. Ribeiro 2014. CC; Pt denies any GI sx or concerns at this time. Extracorporeal Circulation Specialist Required: No Accompanied by: Self / Same As Patient Allergies No Known Allergies [No Known Allergies*] Allergy (Verified 02/09/25 10:09) HPI HPI Colonoscopy screening: Details: 64-year-old male here for preprocedural meeting to discuss a screening colonoscopy. He is referred by Sandra Angel. PMX Obesity Umbilical hernia Frequent falls Depression Constipation Impaired fasting glucose TMJ tenderness * SURGICAL HISTORY Cataract surgery Colonoscopy-2014 Dr. Ribeiro negative study * ALLERGIES: NKDA * [employer] LABS: Laboratory Tests 10/02/24 07:36 WBC 4.8 Hgb 16.3 Hct 47.4 Plt Count 227 Estimated GFR > 60 Total Bilirubin 0.9 AST 26 ALT 21 Alkaline Phosphatase 53 TSH 1.28 TODAY'S VISIT This is his second colonoscopy. He has only occasional CIC and not upper GI problems. He denies any cardiac or respiratory problems. No ID problems. He is mostly naive to anesthesia and sedation, no troubles on past colonoscopy. His brother had colon polyps removed. [facility] Medical History (Updated 02/09/25 @ 10:54 by ESTHER Renae) Annual physical exam Impacted cerumen of both ears COVID-19 virus infection Preop exam for internal medicine Surgical History History of cataract surgery Family History Sister Breast cancer Brother Skin cancer Social History Housing: Apartment Alcohol intake: current Comment: beer once Q 6 months last one 2022 Patient Tobacco Use Status: Never used Tobacco e-Cigarette/Vaping Use: Never Used Second Hand Smoke Exposure: No service: No Current occupational status: employed Cognitive needs: No Hearing needs: No Vision needs: Yes Review of Systems Const Denies fatigue, Denies fever(s), Denies night sweats, Denies poor appetite and Denies weight loss Eyes Reports requires corrective lenses ENT Reports Normal hearing present, Denies dental pain, Denies dysphagia, Denies hearing loss, Denies mouth pain, Denies odynophagia, Denies throat swelling, Denies tongue swelling and Reports other (Dentition adequate) GI Details: Denies abdominal pain, Denies melena, Denies bloating, Denies hematochezia, Denies constipation, Denies GI cramping, Denies dysphagia, Denies excessive flatus, Denies early satiety, Denies heartburn, Denies diarrhea, Denies nausea, Denies odynophagia, Denies vomiting and Denies hematemesis Skin/Breast Denies pruritus, Denies lesions, Denies rash and Denies jaundice Neuro Reports Normal hearing present and Denies Abnormal speech present Endo Denies fatigue Aller/Immun Denies throat swelling and Denies tongue swelling Physical Exam Vital Signs: Last Vital Signs Pulse 58 02/09/25 10:15 BP 146/66 H 02/09/25 10:15 Pulse Ox 97 02/09/25 10:15 Oxygen Delivery Method Room Air 02/09/25 10:15 BMI result Body Mass Index 32.8 Const General: cooperative, no acute distress, well developed and well groomed Nutritional Appearance: well nourished, obese and overweight Orientation/consciousness: oriented to person, oriented to place and oriented to time Limitations: No language barrier, ambulation with cane, ambulation with walker and wheelchair HEENT Head: Yes normocephalic and Yes atraumatic Eyes General: appearance normal, both eyes and all related structures Pupils: Equal, round and reactive pupils present Neck Neck: Yes normal visual inspection and Yes no lymphadenopathy Thyroid: Thyroid normal Resp Effort & Inspection: normal respiratory effort and able to speak in complete sentences Auscultation: clear to auscultation bilaterally Cardio Rate: regular rate Rhythm: regular rhythm Heart sounds: Normal, physiologic split S2 sound present Peripheral pulses: radial pulses present and posterior tibial pulses present GI Inspection: No distended, No Abdominal panniculus present, Yes obesity and Yes visible herniation (umbilical hernia) Palpation (GI): Soft to palpation, nontender, no guarding, not rigid and No hepatosplenomegaly present Percussion: Yes normal to percussion Auscultation: normal bowel sounds Rectal Exam - Male: Yes deferred Skin General skin exam: no rashes or lesions noted, turgor normal, dry skin, no jaundice, No spider nevi and no striae Rashes: no rashes Nails: normal Neuro General: oriented to person, oriented to place and oriented to time Cranial nerves: Yes Equal, round and reactive pupils present and Yes Normal he aring present Speech: No Abnormal speech present Extrem General: Yes normal to inspection, No clubbing, No cyanosis, Yes edema and Yes venous stasis dermatitis (mild) Psych Thought process: Normal thought process present and not confabulating Thought content: Normal thought content present Insight: Good insight present (Psych) Judgement: Good judgement present (Psych) Assessment & Plan Assessment & Plan (1) Pre-op examination: Code(s): Z01.818 - Encounter for other preprocedural examination Category: Medical (2) Family history of polyps in the colon: Comment: brother Code(s): Z83.719 - Family history of colon polyps, unspecified Category: Medical Plan This is his second colonoscopy. He has only occasional CIC and not upper GI problems. He denies any cardiac or respiratory problems. No ID problems. He is mostly naive to anesthesia and sedation, no troubles on past colonoscopy. His brother had colon polyps removed. Orders: Orders Colonoscopy - GI Use Only Today Z01.818 - Encounter for other preprocedural examination Medications: New sodium,potassium,mag sulfates 17.5-3.13-1.6 gram (Suprep Bowel Prep Kit) 480 mL orally; FOR COLONOSCOPY PREP 354 mL 0RF Coding Level of Care Code New Pt Level 3 (23418) Diagnoses Pre-op examination Z01.818 Family history of polyps in the colon Z83.719
[2025-02-09 10:15] VITALS: BP 146/66; PULSE 58; O2SAT 97; BMI 32.8
== END 2025-02-09 10:53 | disposition home or self-care (01) ==
LOC: HO.HGI 10:02
PROVIDERS: PCP Internal Medicine; Visit Provider Nurse Practitioner
DX: Z01.818 Encounter for other preprocedural examination (principal); Z12.11 Encounter for screening for malignant neoplasm of colon; Z83.719 Family history of colon polyps, unspecified
CPT/HCPCS: 99203

== ENCOUNTER → 2025-02-09 10:01 | Outpatient (BNVA) | payer OTHER, SELFPAY | PROVIDERS: PCP Internal Medicine; Visit Provider Nurse Practitioner | DX: Z12.11 Encounter for screening for malignant neoplasm of colon (principal); Z01.818 Encounter for other preprocedural examination; Z83.719 Family history of colon polyps, unspecified | CPT/HCPCS: 99202 ==